=== PATIENT | female | born 1995 ===

== ENCOUNTER 2021-08-06 21:54 | Emergency (ER) | payer OTHER ==
[2021-08-06 22:17] VITALS: BP 145/95; PULSE 85
[2021-08-06] MEDS ORDERED: Ondansetron 4 MG/2 ML SDV IVPUSH ONE (23:32)
[2021-08-06] MEDS ORDERED: HYDROmorphone 1 MG/ML Syringe IVPUSH STA (23:32)
[2021-08-06] MEDS ORDERED: Sodium Chloride 0.9% 1,000 ML IV SCH (23:45)
== END 2021-08-07 01:15 | disposition home or self-care (01) ==
LOC: JD.ED 21:54
DX: R10.31 Right lower quadrant pain (principal); Z28.310 Unvaccinated for COVID-19; Z88.0 Allergy status to penicillin
CPT/HCPCS: 36415; 74177; 80053; 81001; 81025; 85007; 85027; 96374; 96375; 99284; J1170; J2405; J7030; 99283